=== PATIENT | female | born 1960 | race Hispanic/Latino ===

== ENCOUNTER 2022-01-11 16:47 | Emergency (ER) | payer SELFPAY | END 2022-01-11 18:38 | disposition home or self-care (01) | LOC: ERS 16:47 | DX: S60.041A Contusion of right ring finger without damage to nail, initial encounter (principal) ==

== ENCOUNTER 2024-10-02 12:53 | Outpatient (CLI) | payer OTHER | END 2024-10-02 12:54 | disposition home or self-care (01) | LOC: BICMAMMO 12:53 | PROVIDERS: ATTEND Nurse Practitioner Family | DX: Z12.31 Encounter for screening mammogram for malignant neoplasm of breast (principal) | CPT/HCPCS: 77063; 77067 ==